=== PATIENT | female | born 1960 | race Caucasian/White ===

== ENCOUNTER 2019-01-31 16:40 | Emergency (ER) | payer MEDICAID, OTHER ==
[~2019-01-31] VITALS: Ht 160 cm; Wt 69.9 kg
[~2019-01-31 16:40] MED LIST: CHOLESTEROL MED
[2019-01-31 17:17] VITALS: BP 132/81
[2019-01-31] MEDS ORDERED: KETOROLAC TROMETHAMINE INJ 60 MG/2 ML VIAL IM ONE (18:00)
[2019-01-31] MEDS ORDERED: KETOROLAC TROMETHAMINE INJ 30 MG/ML VIAL ONE (19:14)
--- NOTE | 2019-01-31 20:01 | NUR ---
CALLED [facility] FOR XRAY READ.
== END 2019-01-31 20:26 | disposition home or self-care (01) ==
LOC: ER 16:48
DX: M67.432 Ganglion, left wrist (principal); M18.9 Osteoarthritis of first carpometacarpal joint, unspecified
CPT/HCPCS: 29125; 73110; 96372; 99283; J1885

== ENCOUNTER 2021-01-21 00:53 | Emergency (ER) | payer MEDICAID, OTHER ==
[~2021-01-21] VITALS: Ht 160 cm; Wt 68.0 kg
--- NOTE | 2021-01-21 01:10 | NUR ---
pt bibself c/o generalized hives and itching x1week. Pt aaox4 breathing evenly and unlabored. Pt denies using any new creams, laundry detergent, or soaps. Pt attached to monitor and pox. MD at bedside. Pt given blanket and call light within reach.
[2021-01-21] MEDS ORDERED: FAMO-108 PO (01:25)
[2021-01-21] MEDS ORDERED: DIPH50CA4 PO (01:25)
[2021-01-21] MEDS ORDERED: PRED20TA PO (01:25)
[2021-01-21] MEDS ORDERED: diphenhydrAMINE HCL 50 MG/ML VIAL ONE (01:26)
[2021-01-21] MEDS ORDERED: EPINEPHRINE (1:1000) 1 MG/ML AMPUL ONE (01:26)
[2021-01-21] MEDS ORDERED: FAMOTIDINE (20 MG) 20 MG TABLET ONE (01:27)
[2021-01-21] MEDS ORDERED: predniSONE 20 MG TABLET ONE (01:27)
[2021-01-21] MEDS ORDERED: EPINEPHRINE (1:1000) MDV 30 MG/30ML VIAL SUBCUT ONE (01:30)
[2021-01-21] MEDS ORDERED: diphenhydrAMINE HCL 50 MG/ML VIAL IM ONE (01:30)
[2021-01-21] MEDS ORDERED: FAMOTIDINE (20 MG) 20 MG TABLET PO ONE (01:30)
[2021-01-21] MEDS ORDERED: predniSONE 10 MG TABLET PO ONE (01:30)
--- NOTE | 2021-01-21 02:14 | NUR ---
Patient discharged to home in stable condition. Written and verbal after care instructions given. Patient verbalizes understanding of instruction. Pt ambulatory with a steady gait
[2021-01-21 02:20] VITALS: BP 123/76
== END 2021-01-21 02:14 | disposition home or self-care (01) ==
LOC: ER 00:58
DX: L50.9 Urticaria, unspecified (principal); Z79.899 Other long term (current) drug therapy
CPT/HCPCS: 96372 ×2; 99284; J0171 ×2; J1200; J7512 ×2